=== PATIENT | female | born 1945 | race Caucasian/White ===

== ENCOUNTER 2017-04-04 08:05 | Inpatient (IN) | payer MEDICARE, OTHER ==
[~2017-04-04 08:05] MED LIST: MORPHINE SULFATE 15 MG TABLET.SA PO PRN; RINGERS SOLUTION,LACTATED 1,000 ML IV PRN; ROPIVACAINE HCL/PF 100 MG, EPINEPHrine 0.2 MG, KETOROLAC TROMETHAMINE 30 MG in NORMAL S... IJ PRN; TRANEXAMIC ACID 1,000 MG in NORMAL SALINE 100 ML IV PRN; ceFAZolin SODIUM 1 GM VIAL IV PRN
--- OUTSIDE RECORDS SUMMARY | 2017-04-04 08:09 | XMS REPORT | Continuity of Care Document ---
:1945 Author Organization [place] [address] Care Team Providers Name Role Phone Aubrey Judge Primary Care Provider [phone] Source Comments This disclosure is being made pursuant to the Savor program and maynot contain all information available regarding this patient.Posterous Active Allergies and Adverse Reactions Not on File Current Medications Be aware that medications may not be up to date as of this document. Alwaysverify current medications with the patient. Not on file Active Problems Not on file Social History Tobacco Use Types Packs/Day Years Used Date Never Assessed Plan of Care Health Maintenance Due Date Last Done Comments Tetanus/Pertussis (1 - Tdap) 1966 Mammogram 1987 Colonoscopy 1997 Well Adult Visit 1997 Zoster Vaccine 60+ 2007 Bone Density 2012 Pneumococcal Low/Medium Risk 65+ (1 of 2 - PCV13) 2012 Retired-INFLUENZA VACCINE 06/17/2016 Results from Last 3 Months Not on file
--- OUTSIDE RECORDS SUMMARY | 2017-04-04 08:09 | XMS REPORT | Continuity of Care Document ---
:1945 Author Organization [facility] ([facility]) Address [address] [place] [address] Phone [phone] Care Team Providers Name Role Phone Provider, No-Primary Care Primary Care Provider Unavailable Source Comments This disclosure is being made pursuant to the Care Everywhere program, applicable federal and state laws, and may not contain all informaitonavailable regarding this patient.[facility] ([facility]) Active Allergies and Adverse Reactions Allergen Noted Date Severity Reactions Comments Adhesive 12/07/2015 Unknown Chlorhexidine Gluconate 12/20/2015 High Urticaria Reaction noted with (Hives),Rash use of CHG solution (Hibiclens) Metoprolol 12/07/2015 Unknown Pravastatin 12/07/2015 Unknown Current Medications Prescription Sig. Disp. Refills Start Date End Date Status albuterol 90 Use 2 Puffs by Active mcg/Actuation inhaler inhalation every 6 hours as needed. budesonide-formoterol Use 2 Puffs by Active (SYMBICORT) 160-4.5 inhalation 2 times mcg/Actuation inhaler daily. furosemide 40 mg Take 40 mg by mouth Active tablet daily. loratadine 10 mg Take 10 mg by mouth Active tablet daily as needed. acetaminophen 650 mg Take 650 mg by mouth Active CR tablet every 8 hours as needed. ranitidine 150 mg Take 150 mg by mouth Active tablet as needed. amLODIPine 10 mg Take 1 tablet (10 mg 12/25/2015 Active tablet total) by mouth daily. hydrALAZINE 25 mg Take 1 tablet (25 mg 12/25/2015 Active tablet total) by mouth every 8 hours. albuterol-ipratropium Use 3 mL by 11 12/25/2015 Active 2.5-0.5 mg/3 mL inhalation 4 times inhalation solution daily. predniSONE 5 mg Take 1 tablet (5 mg 12/25/2015 Active tablet total) by mouth daily. HEParin (pf) 5000 Inject 0.5 mL (5,000 12/25/2015 Active unit/0.5 mL injection Units total) syringe subcutaneously every 12 hours. insulin lispro Inject 2-10 Units 11 12/25/2015 Active (HumaLOG) 100 unit/mL subcutaneously 3 injection vial times daily with meals for glucose/blood sugar of:150 or less don't give any -066 give 2 [id number] give 4 [id number] give 6 [id number] give 8 [id number] give 10 units Greater than 400 call On-call provider.. polyethylene glycol Take 17 g by mouth 30 Each 12/25/2015 Active 3350 17 gram packet daily. sennosides 8.6 mg Take 2 tablets (17.2 12/25/2015 Active tablet mg total) by mouth 2 times daily. miconazole (BRENDA) 2 % Apply topically 3 142 g 11 12/25/2015 Active in zinc oxide topical times daily. cream Active Problems Patient Care Coordination Note GOALS OF CARE AND TREATMENT PREFERENCES Diagnosis: Acute hypoxic respiratory failure: Infection vs pulmonary edema Prognosis: Guarded, poor Goal(s) of Care: cure and determine what is wrong Is the patient an inpatient? Yes. How did the team arrive at the current code status? Discussion with Son, who talked with his mother about this last week Code status is: Full code Most important goal of care: Cure Additional remarks: N/A Patient able to make own decisions?: No Decision-maker: Next of kin: Son and daughter Problem Noted Date Hypernatremia 12/17/2015 Essential hypertension 12/15/2015 Severe protein-calorie malnutrition 12/15/2015 Overview: Malnutrition Assessment Date: 12/09/2015 Nutrition-Focused Physical Findings: 3-4+ pitting edema of all extremities. Adequate muscle stores and adipose stores. Muscle somewhat difficult to palpate with excess adipose stores. Severe protein calor ie malnutrition in the context of acute illness or injury and severe acute inflammation related to respiratory failure as evidenced by: -- Intake of <50% of estimated energy requirement for >5 days -- Moderate to severe fluid accumulation which i s masking the actual amount of weight lost Malnutrition was present on admission. Metabolic alkalosis 12/14/2015 Hypoalbuminemia 12/08/2015 Pulmonary edema 12/08/2015 Proteinuria 12/08/2015 Chronic respiratory acidosis 12/08/2015 Metabolic acidosis with increased anion gap and accumulation of organic 2015 acids Sleep apnea, obstructive 12/08/2015 Morbid obesity 12/07/2015 Resolved Problems Problem Noted Date Resolved Date Hypokalemia 12/14/2015 12/25/2015 Acute hypernatremia 12/13/2015 12/25/2015 Toxic encephalopathy 12/11/2015 12/25/2015 COPD exacerbation 12/07/2015 12/25/2015 Acute respiratory failure with hypoxia and hypercarbia 12/07/2015 12/25/2015 Hyperkalemia 12/07/2015 12/12/2015 JACK (acute kidney injury) 12/07/2015 12/25/2015 Acute hypercapnic respiratory failure 12/07/2015 12/08/2015 Immunizations Name Dates Previously Given Next Due Influenza, high dose 12/19/2015 Pneumococcal Polysaccharide, PPSV23 (Pneumovax 23) 12/19/2015 Social History Tobacco Use Types Packs/Day Years Used Date Never Assessed Last Filed Vital Signs Vital Sign Reading Time Taken Blood Pressure 148/59 12/25/2015 12:49 PM WOOD [employer]IE [employer] Pulse 89 12/25/2015 12:49 PM [employer] Temperature 37.2 C (99 F) 12/25/2015 12:49 PM [employer] Respiratory Rate 20 12/25/2015 8:49 AM WO[employer]IE [employer] Height 1.524 m (5') 12/09/2015 2:24 PM [employer] Weight 123.9 kg (273 lb 2.4 oz) 12/24/2015 8:30 PM [employer] Body Mass Index 53.35 12/24/2015 8:30 PM [employer] Oxygen Saturation 92% 12/25/2015 12:49 PM WO[employer] Plan of Care Health Maintenance Due Date Last Done Comments HCV Screening 1945 Hepatitis B Vaccine (1 of 3 - Primary Series) 1945 Tdap Vaccine 1958 Lipid Disorder Screening 1965 Td Vaccine 1965 Mammogram 1987 Colonoscopy 04/02/1997 Zoster Vaccine 2007 Osteoporosis Screening (DXA Bone Density) 2012 Influenza Vaccine: Seasonal (#1) 05/17/2016 12/19/2015 Pneumococcal Vaccine (2 of 2 - PCV13) 12/18/2016 12/19/2015 Results from Last 3 Months Not on file
--- NOTE | 2017-04-04 10:41 | PREOP NOTE ---
Preoperative Progress Note - Preoperative Changes Changes to Preop Condition?: No Changes
[2017-04-04] MEDS ORDERED: RINGERS SOLUTION,LACTATED 550 ML IV ONE (11:30)
[2017-04-04] MEDS ORDERED: RINGERS SOLUTION,LACTATED 1,000 ML IV ONE (12:10)
[2017-04-04] MEDS ORDERED: MAG HYDROX/ALUMINUM HYD/SIMETH 30 ML UDC PO PRN (13:34)
[2017-04-04] MEDS ORDERED: HYDROmorphone HCL 1 MG/ML DISP.SYRIN IV PRN (13:34)
[2017-04-04] MEDS ORDERED: PROMETHAZINE HCL 5 MG in DEXTROSE 5 % IN WATER 50 ML IV PRN ×2 (13:34)
[2017-04-04] MEDS ORDERED: MAGNESIUM HYDROXIDE 30 ML UDC PO PRN (13:34)
[2017-04-04] MEDS ORDERED: diphenhydrAMINE HCL 50 MG/ML VIAL IV PRN (13:34)
[2017-04-04] MEDS ORDERED: ACETAMINOPHEN 500 MG TABLET PO PRN (13:34)
[2017-04-04] MEDS ORDERED: ONDANSETRON HCL/PF 2 MG/ML VIAL IV PRN (13:34)
[2017-04-04] MEDS ORDERED: ZOLPIDEM TARTRATE 5 MG TABLET PO PRN (13:34)
--- NOTE | 2017-04-04 13:39 | OR ---
Operative Report - Dictated Report Narrative: Date: 04/04/2017 Preoperative diagnosis: Left hip degenerative joint disease. Postoperative diagnosis: Left hip degenerative joint disease. Procedure: Left Total hip arthroplasty. Surgeon: Garry Arriaza M.D. Accounting Manager Assistant Controller: Jose Westfall PA-C Anesthesia: Spinal and local periarticular joint injection. Complications: None Specimens: Bone for disposal. Estimated blood loss: 200 milliliters. Retained implants: Depuy [place] size 5 femoral stem standard offset. Size 48 millimeter ouside diameter 3-hole [place] Gription acetabular cup. 48 millimeter outside by 32 millimeter inside diameter highly cross-linked acetabular liner. 32 millimeter diameter +1.5 millimeter cobalt chromium femoral head. Cancellous 6.5mm screw 30 millimeter length Indications: Mrs. Reyes is a 72-year-old female who has complained of left hip pain. This patient was followed in my clinic for period of time with significant complaints of left hip pain consistent with arthritic changes. She failed conservative measures including but not limited to activity modification , passage of time, medications, and other conservative measures. Patient wished to proceed with surgical treatment. The risks, benefits, and alternatives were discussed in clinic. The risks of , blood clots, bleeding, infection, nerve/tendon blood vessel/ injury, malposition of components, dislocation and/or instability of joint, intraoperative fracture, postoperative limited range of motion, persistent pain, failure of components, and need for additional procedures. Patient wished to proceed. Consent was obtained after answering all questions. Procedure: After marking the correct extremity on the floor, the patient was taken to the operating room. A timeout was performed. IV antibiotics consisting of Ancef were administered prior to the procedure. A spinal anesthetic was induced by anesthesia. A Mckinney catheter was inserted. The patient was then transitioned to a lateral position on a well-padded pegboard. An axillary roll was placed. The head was in neutral position. The non- operative down leg was well-padded with SCD and ANEESH hose in place. The arms were supported and padded to protect from any undue pressure on the bony prominences and nerves. A well-padded anterior and posterior pelvic and chest posts were secured in order to maintain a stable position of the pelvis. This was placed so that the pelvis was perpendicular to the floor. The body was in line with the pelvis. Once it was felt that we had protected all the bony prominences and the patient was well secured with a safety belt as well, the leg was pre-scrubbed with alcohol, prepped and draped in a standard sterile fashion. A standard anterior lateral hip incision was marked out over the greater trochanter. Ioban drapes were then placed. The skin incision was then made. Sharp dissection with a scalpel utilizing cautery for hemostasis was carried out down to the gluteus and iliotibial band fascia. This was split in line with the skin incision. The greater trochanter bursa was excised. The anterior and posterior margins of the abductor tendon were identified. The anterior 1/2-1/3 of the tendon was tagged and reflected off the greater trochanter leaving a sleeve of tendon for repair at the completion of the case. This exposed the underlying hip joint capsule. A limb length stitch was placed in the skin and referencedd off a rica on the greater trochanter for evaluation of intraoperative limb lengths. An inverted T-type capsulotomy was made extending this up to the brim of the acetabulum. Using Homans to assist with elevation of the soft tissues off the anterior, superior, and inferior aspects of the femoral neck, the hip was then placed in a figure 4 position and the femoral head was dislocated. With the leg in an externally rotated and adducted position, the cutting flag was utilized in order to rica for a standard femoral neck cut approximately a fingerbreadth above the level of the lesser trochanter. This was done with reference to pre-operative films and overall alignment. This was done while protecting the surrounding soft tissues with Homans. The femoral head was then removed and sized for guidance on preparation of the acetabulum. It was noted that there was loss of articular cartilage on both the femoral head and weightbearing portions of the acetabulum. We then returned the leg to the table and turned our attention to the acetabulum. While protecting the surrounding soft tissues, the labrum and remaining tissue in the fovea were excised using a scalpel and cautery. A series of reamers up to size 48 millimeter were utilized to prepare the acetabulum. The final reamer had good purchase and exposed the bleeding subchondral bone. The acetabulum was then thoroughly irrigated ensuring that all bony and cartilaginous materials were removed, and the final acetabular shell was impacted into place. This was placed in approximately 45 degrees of abduction and 20 degrees of anteversion utilizing the outrigger and body axis for alignment. This had a good press fit. 1 6.5mm cancellous screw was placed in the superior posterior quadrant of the acetabulum. The shell was then thoroughly irrigated and the final polyethylene was impacted into place ensuring that it seated completely. This was then protected with a sponge while we returned our attention to the femur. With the leg in a figure 4 position, utilizing Homans for soft tissue protection , a box cutting osteotome, followed by Charnley awl, followed by serial reamers and broaches were utilized in order to prepare the femur. It was found that a size 5 broach gave good axial and rotational stability. The calcar reamer was utilized in order to clean up the cut edges. The proximal femur was visualized to ensure that there were no signs of fracture. A series of heads and necks were trialed. It was found that a standard neck and a + 1.5 femoral head gave good overall stability. There was minimal longitudinal instability. With the leg in the position of sleep, the femoral head was well covered. Hip range of motion was able to reach full extension and external rotation to greater than 75 degrees prior to impingement along the posterior acetabulum. The hip was able to be flexed to greater than 90 degrees with internal rotation greater than 60 degrees prior to anterior impingement. The limb lengths were near equal based on comparison to the contralateral side and the prior placed limb length stitch. At this point it was felt these were the appropriately sized femoral components as well as neck and femoral head. The trial implants were removed. The femur was thoroughly irrigated. The final implants were impacted into place, and the hip was reduced. After ensuring that there was no damage to the proximal femur , the standard periarticular joint injection of ropivacaine, Toradol, and epinephrine were injected into the joint capsule and surrounding soft tissues. Anesthesia then administered intravenous tranexamic acid. The capsule was repaired with a single interrupted #1 Vicryl. The abductor tendon was repaired to the greater trochanter utilizing #5 Ethibond through drill holes. This was oversewn with #1 Vicryl. The fascia was closed with interrupted #1 Vicryl. The wounds were thoroughly irrigated as we closed in layers. The deep and subcutaneous fat layers were closed with 0 and 3-0 Vicryl respectively. The subcutaneous tissue was closed with a running 3-0 Vicryl and 3-0 Monocryl. A Prineo Dermabond dressing was applied. All sponge, needle, blade, and instrument counts were correct prior to closing the wounds. Sterile dressings consisting of 4 x 4's and tape were applied. The patient was awoken and transferred to her hospital bed and then to the postanesthesia care unit in stable condition. Postoperative condition: The plan is to admit to the medical/surgical inpatient floor postoperatively. There will be a projected 2 to 4 day hospital stay. Postoperatively 24 hours of IV antibiotics, pain control, physical therapy, occupational therapy, and medical comanagement will be utilized. Patient will be weightbearing as tolerated with anterior hip precautions. Postoperative films will be obtained in the recovery room.
[2017-04-04] MEDS: RINGERS SOLUTION,LACTATED 1,000 ML IV PRN ×2 (14:34→17:10)
[2017-04-04] MEDS: KETOROLAC TROMETHAMINE 15 MG/ML VIAL IV SCH ×2 (14:40→18:55)
[2017-04-04] MEDS: ceFAZolin SODIUM 1 GM in DEXTROSE 5 % IN WATER 100 ML IV SCH ×4 (14:43→21:07)
[2017-04-04] MEDS: POTASSIUM CHLORIDE 20 MEQ TABLET.SA PO SCH (17:09)
[2017-04-04] MEDS: oxyCODONE HCL/ACETAMINOPHEN 1 TAB TABLET PO PRN (17:10)
[2017-04-04] MEDS: MORPHINE SULFATE 15 MG TABLET.SA PO SCH (21:05)
[2017-04-04] MEDS: SENNOSIDES/DOCUSATE SODIUM 1 TAB TABLET PO SCH (21:05)
[2017-04-04] MEDS: TOLTERODINE TARTRATE 2 MG CAPSULE PO SCH (21:06)
[2017-04-04] MEDS: ALLOPURINOL 300 MG TABLET PO SCH (21:06)
[2017-04-04] MEDS: MONTELUKAST SODIUM 10 MG TABLET PO SCH (21:06)
[2017-04-05] MEDS: RINGERS SOLUTION,LACTATED 1,000 ML IV PRN (01:51)
[2017-04-05] MEDS: KETOROLAC TROMETHAMINE 15 MG/ML VIAL IV SCH ×4 (01:52→18:54)
[2017-04-05] MEDS: ceFAZolin SODIUM 1 GM in DEXTROSE 5 % IN WATER 100 ML IV SCH ×2 (03:18)
[2017-04-05 05:38] LABS: Hemoglobin 10.8 gm/dL (12.5-16.0); Mean Corpuscular Hemoglobin 27.6 pg (27-31); Mean Corpuscular Hgb Conc 31.8 g/dl (32-36); Mean Platelet Volume 9.2 fl (6.0-9.5); Platelet Count 335 K/mm3 (150-450); Red Blood Count 3.91 M/mm3 (4.2-5.4); Red Cell Distribution Width 15.9 % (11.5-14.0); White Blood Count 9.4 K/mm3 (4.0-10.5)
[2017-04-05 05:49] LABS: BUN/Creatinine Ratio 21.6 (9.0-21.6); Calcium * 8.8 mg/dL (7.9-10.9); Carbon Dioxide 33.5 mmol/L (24-32.6); Estimated Creat Clear 34.8; Potassium 3.5 mmol/L (3.4-4.6)
[2017-04-05] MEDS: LEVOTHYROXINE SODIUM 75 MCG TABLET PO SCH (07:13)
--- NOTE | 2017-04-05 08:22 | PN ---
Subjective - Date and Time Seen Date: 04/05/17 Time: 08:16 Subjective Narrative: Patient reports she feels good. Pain controlled. No nausea. No lightheadedness. No complaints. Objective Objective Narrative: Patient currently working with PT. Standing transferring to chair from be. Bandages C/D/I. N/V intact PF/DF ankle. Calf supple. - Vitals Vitals: Last Vital Signs Temp 36.6 C 04/05/17 06:55 Pulse 69 04/05/17 06:55 Resp 17 04/05/17 06:55 BP 77/46 04/05/17 06:55 Pulse Ox 97 04/05/17 06:55 - Abnormal Lab Findings Abnormal Lab Findings: Abnormal Lab Results 04/05/17 04/05/17 Range/Units 05:20 05:20 RBC 3.91 L (4.2-5.4) M/mm3 Hgb 10.8 L (12.5-16.0) gm/dL Hct 34.0 L (37.0-47.0) % MCHC 31.8 L (32-36) g/dl RDW 15.9 H (11.5-14.0) % Carbon Dioxide 33.5 H (24-32.6) mmol/L Random Glucose 112 H (70-110) mg/dL - Exam Constitutional: Present: Alert, Oriented x3, Cooperative, No distress Cauti Physician Documentation - Urinary Catheter Management 2-way Urethral Date of Insertion: 04/04/17 Time of Insertion: 12:15 Urethral (Mckinney) Date of Insertion: 04/04/17 Time of Insertion: 12:15 Assessment/Plan - Problems/Diagnosis (1) S/P total hip arthroplasty Problem: Acute Narrative: PT, anticoagulation, pain control, recheck labs tomorrow, patient will need wheeled walker for 6-8 weeks for ambulation (2) Acute blood loss anemia Problem: Acute Narrative: asymptomatic, recheck labs tomorrow (3) Diabetes 1.5, managed as type 2 Problem: Chronic (4) Hypercholesteremia Problem: Chronic (5) Hypothyroid Problem: Chronic (6) Metabolic syndrome Problem: Chronic (7) Obesities, morbid Problem: Chronic (8) Hypertension Problem: Chronic (9) COPD (chronic obstructive pulmonary disease) Problem: Chronic (10) CHF (congestive heart failure) Problem: Chronic (11) PVD (peripheral vascular disease) Problem: Chronic
[2017-04-05] MEDS: oxyCODONE HCL/ACETAMINOPHEN 1 TAB TABLET PO PRN ×2 (08:25→12:51)
[2017-04-05] MEDS ORDERED: LEVOTHYROXINE SODIUM 75 MCG TABLET PO SCH (09:00)
[2017-04-05] MEDS ORDERED: NON-FORMULARY 1 DOSE DOSE (Fluticasone/Vilanterol [Breo Ellipta 100-25 Mcg Inh] 1 INH) INH SCH (09:00)
[2017-04-05] MEDS ORDERED: NON-FORMULARY 1 DOSE DOSE (Umeclidinium Bromide [Incruse Ellipta] 1 PUFF) IH SCH (09:00)
[2017-04-05] MEDS ORDERED: FLUTICASONE/SALMETEROL 14 PUFF DISK.W.DEV IH SCH (10:00)
[2017-04-05] MEDS ORDERED: TIOTROPIUM BROMIDE 5 CAP INHALER IH SCH (10:00)
[2017-04-05] MEDS: CHOLECALCIFEROL 1,000 UNIT CAPSULE PO SCH (10:20)
[2017-04-05] MEDS: ALLOPURINOL 300 MG TABLET PO SCH ×2 (10:20→20:33)
[2017-04-05] MEDS: FLUoxetine HCL 20 MG CAPSULE PO SCH (10:20)
[2017-04-05] MEDS: MORPHINE SULFATE 15 MG TABLET.SA PO SCH ×2 (10:21→20:32)
[2017-04-05] MEDS: MAGNESIUM OXIDE 400 MG TABLET PO SCH (10:21)
[2017-04-05] MEDS: POTASSIUM CHLORIDE 20 MEQ TABLET.SA PO SCH ×2 (10:21→17:13)
[2017-04-05] MEDS: TOLTERODINE TARTRATE 2 MG CAPSULE PO SCH ×2 (10:27→20:32)
[2017-04-05] MEDS: MULTIVITAMINS 1 CAP CAPSULE PO SCH (10:29)
[2017-04-05] MEDS: LORATADINE 10 MG TABLET PO SCH (10:29)
[2017-04-05] MEDS: SPIRONOLACTONE 25 MG TABLET PO SCH (10:29)
[2017-04-05] MEDS: METOLAZONE 2.5 MG TABLET PO SCH (10:37)
[2017-04-05] MEDS: FUROSEMIDE 40 MG TABLET PO SCH (10:37)
[2017-04-05] MEDS: Fluticasone/Vilanterol [Breo Ellipta 100-25 Mcg Inh] INH SCH (11:00)
[2017-04-05] MEDS: ENOXAPARIN SODIUM 40 MG/0.4 ML SYRG SC SCH (12:25)
[2017-04-05] MEDS: MONTELUKAST SODIUM 10 MG TABLET PO SCH (20:33)
[2017-04-05] MEDS: SENNOSIDES/DOCUSATE SODIUM 1 TAB TABLET PO SCH (20:33)
[2017-04-06] MEDS: oxyCODONE HCL/ACETAMINOPHEN 1 TAB TABLET PO PRN ×2 (01:10→05:17)
[2017-04-06] MEDS: KETOROLAC TROMETHAMINE 15 MG/ML VIAL IV SCH ×2 (01:10→07:22)
[2017-04-06 05:51] LABS: Hematocrit 32.6 % (37.0-47.0); Hemoglobin 10.2 gm/dL (12.5-16.0); Mean Cell Volume 87.6 fl (78-100); Mean Corpuscular Hemoglobin 27.4 pg (27-31); Mean Corpuscular Hgb Conc 31.3 g/dl (32-36); Mean Platelet Volume 9.6 fl (6.0-9.5); Platelet Count 338 K/mm3 (150-450); Red Blood Count 3.72 M/mm3 (4.2-5.4); Red Cell Distribution Width 15.7 % (11.5-14.0); White Blood Count 11.3 K/mm3 (4.0-10.5)
[2017-04-06 05:56] LABS: Anion Gap 8.6 mmol/L (6.8-13.8); BUN/Creatinine Ratio 20.8 (9.0-21.6); Calcium * 9.2 mg/dL (7.9-10.9); Carbon Dioxide 31.4 mmol/L (24-32.6); Estimated Creat Clear 35.2
[2017-04-06] MEDS: LEVOTHYROXINE SODIUM 75 MCG TABLET PO SCH (07:20)
[2017-04-06] MEDS: FLUoxetine HCL 20 MG CAPSULE PO SCH (10:09)
[2017-04-06] MEDS: Fluticasone/Vilanterol [Breo Ellipta 100-25 Mcg Inh] INH SCH (10:09)
[2017-04-06] MEDS: MULTIVITAMINS 1 CAP CAPSULE PO SCH (10:09)
[2017-04-06] MEDS: METOLAZONE 2.5 MG TABLET PO SCH (10:10)
[2017-04-06] MEDS: MAGNESIUM OXIDE 400 MG TABLET PO SCH (10:10)
[2017-04-06] MEDS: POTASSIUM CHLORIDE 20 MEQ TABLET.SA PO SCH (10:10)
[2017-04-06] MEDS: ALLOPURINOL 300 MG TABLET PO SCH (10:10)
[2017-04-06] MEDS: CHOLECALCIFEROL 1,000 UNIT CAPSULE PO SCH (10:10)
[2017-04-06] MEDS: SPIRONOLACTONE 25 MG TABLET PO SCH (10:11)
[2017-04-06] MEDS: TOLTERODINE TARTRATE 2 MG CAPSULE PO SCH (10:11)
[2017-04-06] MEDS: LORATADINE 10 MG TABLET PO SCH (10:11)
[2017-04-06] MEDS: MORPHINE SULFATE 15 MG TABLET.SA PO SCH (10:11)
[2017-04-06] MEDS: FUROSEMIDE 40 MG TABLET PO SCH (10:15)
[2017-04-06 10:21] VITALS: BP 115/46
--- NOTE | 2017-04-06 10:54 | DS ---
(1) Acute blood loss anemia Problem: Acute (2) S/P total hip arthroplasty Problem: Acute (3) CHF (congestive heart failure) Problem: Chronic (4) COPD (chronic obstructive pulmonary disease) Problem: Chronic (5) Diabetes 1.5, managed as type 2 Problem: Chronic (6) Hypercholesteremia Problem: Chronic (7) Hypertension Problem: Chronic (8) Hypothyroid Problem: Chronic (9) Metabolic syndrome Problem: Chronic (10) Obesities, morbid Problem: Chronic (11) PVD (peripheral vascular disease) Problem: Chronic Description of Stay: Mrs. Reyes was admitted to the floor after undergoing left total hip arthroplasty. Tolerated this well. Was admitted to the floor postoperatively for 24 hours of IV antibiotics, pain control, medical comanagement, and occupational and physical therapy. OT and PT were consulted to assist with activities of daily living and ambulation. Was made weightbearing as tolerated with anterior hip precautions. Pain was initially controlled with IV regimen. This was transitioned to oral once tolerating a by mouth intake. Was resumed on home diet and medications. Had a Mckinney catheter inserted and the operating room which was discontinued on postoperative day 1. Lovenox SCD and ANEESH hose were utilized for DVT prophylaxis. Vital signs remained stable to the hospital course. Serial labs were obtained which showed a final hemoglobin of 10.2 grams. BMP was reviewed and was stable. Physical examination throughout the hospital course showed an extremity that had sensation that was intact to light touch, palpable pulses, a benign wound, motor intact to the toes, ankle, and knee. Once an oral pain regimen was tolerated and physical therapy goals were met, it was felt that they were stable for discharge to home. Instructions: Continue with weightbearing as tolerated and anterior hip precautions. She was instructed that she is okay to shower as long as there is no drainage from the wound. If there is any drainage from the wound she is instructed to keep the wound clean and dry. Cover with dry gauze and tape. Change every 2-3 days as needed. Cover wound while showering if there is any drainage. Continue with physical therapy. Resume home diet. Report any fever over 101.5 Fahrenheit, uncontrolled pain, increased drainage, foul odor of drainage, new or increased calf pain or shortness of breath, or any other significant complaints. A 325mg dialy aspirin will be started after finishing anticoagulation if not allergic. Continue with ANEESH hose on the operative extremity until instructed otherwise. No driving until instructed otherwise. Follow up in approximately 10-14 days. Procedures Performed: see notes below List Procedures: Left total hip arthroplasty Discharge Disposition: Home self care Disposition: Home self-care Condition: Good Discharge Activity: Weight bearing, Other - anterior hip precautions with no active abduction Discharge Diet: Consistent carbs [facility] Therapy: Physicial Therapy Referrals: An Garcia ARNP [Primary Care Provider] - Additional Patient Instructions (free text): Follow up Physical Therapy at [facility] ([facility] on TuesdayApril 08 at 4pm. Follow up with Dr. Arriaza on April at 10:45 AM. Prescriptions (Any new or edited meds): Enoxaparin Sodium [Lovenox] 40 mg SC Q24H #7 disp.syrin Morphine Sulfate [Ms Contin] 15 mg PO Q12H #20 tablet.sa Sennosides/Docusate Sodium [Senokot-S] 2 tab PO HS #30 tablet oxyCODONE HCL/ACETAMINOPHEN [Percocet 5 MG/325 MG] 2 tab PO Q4H PRN #90 tablet PRN Reason: Moderate Pain Complete Home Medications List: Complete Home Medication List: Allopurinol [Zyloprim] 300 mg PO BID 03/28/17 Cholecalciferol (Vitamin D3) [Vitamin D3] 1,000 unit PO DAILY 03/28/17 Furosemide [Lasix] 40 mg PO DAILY 03/28/17 HYDROcodone/ACETAMINOPHEN [Lortab 5-325 mg Tablet] 1 each PO BID PRN 03/28/17 Levothyroxine Sodium [Synthroid] 75 mcg PO DAILY 03/28/17 Levothyroxine Sodium [Synthroid] 75 mcg PO DAILY 03/28/17 Loratadine [Claritin] 10 mg PO DAILY 03/28/17 Magnesium Oxide [Magnesium] 400 mg PO DAILY 03/28/17 Metolazone [Zaroxolyn] 2.5 mg PO DAILY 03/28/17 Multivitamins [Multivitamin Francesca] 1 cap PO DAILY 03/28/17 Potassium Chloride [Klor-Con 10] 20 meq PO BID 03/28/17 Spironolactone [Aldactone] 50 mg PO DAILY 03/28/17 Tolterodine Tartrate [Detrol LA] 2 mg PO BID 03/28/17 FLUoxetine HCL [Fluoxetine HCl] 20 mg PO DAILY 04/04/17 Montelukast Sodium [Singulair] 10 mg PO HS 04/04/17 Umeclidinium [place] [Incruse Ellipta] 1 puff IH DAILY 04/04/17 Fluticasone/Vilanterol [Breo Ellipta 200-25 Mcg INH] 1 each IH DAILY 04/05/17 Enoxaparin Sodium [Lovenox] 40 mg SC Q24H #7 disp.syrin 04/06/17 Morphine Sulfate [Ms Contin] 15 mg PO Q12H #20 tablet.sa 04/06/17 Sennosides/Docusate Sodium [Senokot-S] 2 tab PO HS #30 tablet 04/06/17 oxyCODONE HCL/ACETAMINOPHEN [Percocet 5 MG/325 MG] 2 tab PO Q4H PRN #90 tablet 04/06/17 Amb Orders for Discharge: PT Evaluation and Treatment Facility: [facility], Location: Rehabilitation Services PT Evaluation and Treatment Facility: [facility], Location: Rehabilitation Services
[2017-04-06] MEDS: ENOXAPARIN SODIUM 40 MG/0.4 ML SYRG SC SCH (11:55)
== END 2017-04-06 17:20 | disposition home or self-care (01) | DRG 470 ==
LOC: MS 08:05
PROVIDERS: ADMIT Orthopaedic Surgery; ATTEND Orthopaedic Surgery
PROC: 0SRB0JZ Replacement of Left Hip Joint with Synthetic Substitute, Open Approach (ICD-10-PCS; principal; 2017-04-04 11:30)
DX: M16.12 Unilateral primary osteoarthritis, left hip (principal); D62 Acute posthemorrhagic anemia; Z68.42 Body mass index [BMI] 45.0-49.9, adult; E78.5 Hyperlipidemia, unspecified; I10 Essential (primary) hypertension; J44.9 Chronic obstructive pulmonary disease, unspecified; J45.909 Unspecified asthma, uncomplicated; E66.01 Morbid (severe) obesity due to excess calories; E88.81 Metabolic syndrome and other insulin resistance; E11.9 Type 2 diabetes mellitus without complications; I50.9 Heart failure, unspecified